=== PATIENT | female | born 1980 | race Caucasian/White ===

== ENCOUNTER → 2017-05-20 08:28 | Outpatient (CLI) | payer BC, SELFPAY ==
--- NOTE | 2017-05-20 08:37 | CA_ITS ---
PROCEDURE: 2-D M-mode and color Doppler study INDICATIONS FOR THE TEST: Chest pain X COPD Heart Murmur Tobacco Smoking Palpitations Fatigue Syncope Edema HypertensionXDiabetes Mellitus Rheumatic Fever SOBXDOE Obesity Hyperlipidemia Family History HD Additional History PATIENT INFORMATION HEIGHT: 64 WEIGHT:130 GENDER: Female B/P:170/100 2-D/M-MODE INTERPRETATION: 2-D MEASUREMENTS OBSERVED VALUES IN CMS Right Ventricular Dimension (RVDd) 2.4 Interventricular Septum (Thickness)(IVsd) .6 Left Ventricular Internal Dimensions(LVIDd) 4.8 Left Ventricular Posterior Wall (Thickness)(LVPWd) .7 Aortic Root 2.5 Aortic Cusp Separation 1.9 Left Atrial Dimensions (LAD) 2.9 2D 1. Left atrium is normal size, left ventricle is normal size, there is no concentric left ventricular hypertrophy, visually estimated ejection fraction 55% with no obvious regional wall motion abnormality. 2. The right atrium and right ventricle are normal size and contractility. 3. The aortic, mitral and tricuspid valve are structurally normal. 4. The pulmonic valve is poorly visualized. 5. There is no significant pericardial effusion noted. DOPPLER INTERROGATION: Doppler interrogation of the aortic, mitral and tricuspid valvular presence of mild mitral and tricuspid regurgitation, tricuspid and jet velocity insufficient for calculation of the right ventricular systolic pressure, diastolic parameters are within normal range. CONCLUSION: 1. Normal left ventricular size, preserved left ventricular systolic function, visually estimated ejection fraction 55% with no obvious regional wall motion abnormality, diastolic parameters are within normal range. 2. Mild mitral and tricuspid regurgitation 3. No significant pericardial effusion noted.
== END ==
PROVIDERS: Family Provider Physician Assistant; PCP Internal Medicine Adolescent Medicine; Visit Provider Nurse Practitioner Family
DX: I10 Essential (primary) hypertension (principal); R07.9 Chest pain, unspecified
CPT/HCPCS: 93306

== ENCOUNTER → 2017-06-30 17:15 | Outpatient (CLI) | payer BC, SELFPAY ==
[2017-06-30 18:28] LABS: Strep Scrn Group A (Rapid) Negative (Negative)
== END ==
PROVIDERS: Visit Provider Nurse Practitioner Family
DX: J02.9 Acute pharyngitis, unspecified (principal)
CPT/HCPCS: 87430

== ENCOUNTER 2017-07-10 15:36 | Emergency (ER) | payer BC, SELFPAY ==
[2017-07-10 15:46] VITALS: BP 142/89; PULSE 78; RESP 20; TEMP 36.8; O2SAT 98; BMI 23.1
--- NOTE | 2017-07-10 15:55 | HMH.EDUTC ---
[facility] [place] Clinical Impression: Sinusitis Qualifiers: Sinusitis location: unspecified location Chronicity: unspecified Qualified Code(s): J32.9 - Chronic sinusitis, unspecified Disposition: Home, Self-Care Condition on Discharge: Good Instructions: Sinusitis, Sinus Headache, DI for Sinusitis Additional Instructions: Start antibiotic. Sinus infections may take 2-3 days to notice much improvement so be sure to use conservative measures as discussed for symptoms Flonase 2 spray in each nostril daily to help with nasal congestion, sinus an ear pressure/inflammation Lots of Fluids Sleep elevated Humidifer/vaporizer Augmentin can cause GI effects. Probiotics may help to prevent these symptoms Prescriptions: Amoxicillin/Potassium Clav [Augmentin 875-125 Tablet] 1 tab PO Q12H #14 tab Fluticasone Propionate [Flonase 50mcg nasal spray 16gm] 2 spr NS DAILY #1 bottle Guaifenesin/Dextromethorphan [Mucinex Dm ER 1,200-60 mg Tab] 1 each PO Q12H #20 tab.er.12h predniSONE [Prednisone 20mg Tab] 20 mg PO BID #10 tab Time of Disposition: 16:11 Medical Decision Making - Medical Records Medical records reviewed: Yes: I reviewed the patient's medical records. - Jamie Inquiry Pt receiving controlled substance: No Jamie was queried for this patient: No Vital Signs: 07/10/17 15:46 Temperature 98.2 F Temperature Source Temporal Artery Scan Pulse Rate [Right Brachial] 78 Respiratory Rate 20 Blood Pressure [Right Arm] 142/89 Blood Pressure Mean [Right Arm] 106 Blood Pressure Source [Right Arm] Automatic Cuff Blood Pressure Position [Right Arm] Sitting 02 Sat by Pulse Oximetry 98 Oxygen Delivery Method Room Air [facility] [place] HPI - General Stated complaint: eyes hurt,head congestion,sinus problems Time Seen by Provider: 07/10/17 16:00 Mode of Arrival: Family Vehicle Source of Information: Patient Limitations: No Limitations Description of Symptoms (Recalled from Triage Doc. by RN): C/O SORE THROAT, BURNING EYES,SINUSPRESSURE AND PAIN X 2 WEEKS HEENT Symptoms (Recalled from RN notes): Yes Resp Symptoms (Recalled from RN notes): Yes Skin Symptoms (Recalled from RN notes): No MS Symptoms (Recalled from RN notes): No Functional Status (Recalled from RN notes): N/A - History of Present Illness Provider Complaint: Patient state that she has been having sinus pain and pressure now for about 2 weeks State that she has taken several over the counter medications but nothing has worked State that she has had a fever, pain and pressure behind her eyes, feels like her teeth is sore. State that she has blown her nose several times and seen blood tinged mucous State that now this evening she has a sinus headache and decided to come in and get checked out - Related Data Home Medications Medication Instructions Recorded Confirmed Cetirizine HCl [Zyrtec] 10 mg PO DAILY 07/10/17 07/10/17 Escitalopram Oxalate [Lexapro] 20 mg PO DAILY 07/10/17 07/10/17 Meloxicam 7.5 mg PO DAILY 07/10/17 07/10/17 Propranolol HCl 10 mg PO BID 07/10/17 07/10/17 Previous Rx's Medication Instructions Recorded Amoxicillin/Potassium Clav 1 tab PO Q12H #14 tab 07/10/17 [Augmentin 875-125 Tablet] Fluticasone Propionate [Flonase 2 spr NS DAILY #1 bottle 07/10/17 50mcg nasal spray 16gm] Guaifenesin/Dextromethorphan 1 each PO Q12H #20 tab.er.12h 07/10/17 [Mucinex Dm ER 1,200-60 mg Tab] predniSONE [Prednisone 20mg 20 mg PO BID #10 tab 07/10/17 Tab] Allergies Allergy/AdvReac Type Severity Reaction Status Date / Time No Known Allergies Allergy Verified 07/10/17 15:50 - Worker's Comp Is this a Worker's Comp case?: No [facility] History I have reviewed the patient's past medical history: Yes - Social History Alcohol Intake: never - Psychiatric History Expresses thoughts of harming self/others: None Suicide Plan Description: No Plan ROS Obtained: Yes All systems reviewed & no additional complaints - Constitutional Constitutional:
--- NOTE | 2017-07-10 16:06 | ED_ITS ---
[facility] – [place] Disposition Clinical Impression: Sinusitis Qualifiers: Sinusitis location: unspecified location Chronicity: unspecified Qualified Code (s): J32.9 - Chronic sinusitis, unspecified Disposition: Home, Self-Care Condition on Discharge: Good Instructions: Sinusitis, Sinus Headache, DI for Sinusitis Additional Instructions: Start antibiotic. Sinus infections may take 2-3 days to notice much improvement so be sure to use conservative measures as discussed for symptoms Flonase 2 spray in each nostril daily to help with nasal congestion, sinus an ear pressure/inflammation Lots of Fluids Sleep elevated Humidifer/vaporizer Augmentin can cause GI effects. Probiotics may help to prevent these symptoms Prescriptions: Amoxicillin/Potassium Clav [Augmentin 875-125 Tablet] 1 tab PO Q12H #14 tab Fluticasone Propionate [Flonase 50mcg nasal spray 16gm] 2 spr NS DAILY #1 bottle Guaifenesin/Dextromethorphan [Mucinex Dm ER 1,200-60 mg Tab] 1 each PO Q12H #20 tab.er.12h predniSONE [Prednisone 20mg Tab] 20 mg PO BID #10 tab Time of Disposition: 16:11 Medical Decision Making - Medical Records Medical records reviewed: Yes: I reviewed the patient's medical records. - Jamie Inquiry Pt receiving controlled substance: No Jamie was queried for this patient: No Vital Signs: 07/10/17 15:46 Temperature 98.2 F Temperature Source Temporal Artery Scan Pulse Rate [Right Brachial] 78 Respiratory Rate 20 Blood Pressure [Right Arm] 142/89 Blood Pressure Mean [Right Arm] 106 Blood Pressure Source [Right Arm] Automatic Cuff Blood Pressure Position [Right Arm] Sitting 02 Sat by Pulse Oximetry 98 Oxygen Delivery Method Room Air [facility] [place] HPI - General Stated complaint: eyes hurt,head congestion,sinus problems Time Seen by Provider: 07/10/17 16:00 Mode of Arrival: Family Vehicle Source of Information: Patient Limitations: No Limitations Description of Symptoms (Recalled from Triage Doc. by RN): C/O SORE THROAT, BURNING EYES,SINUSPRESSURE AND PAIN X 2 WEEKS HEENT Symptoms (Recalled from RN notes): Yes Resp Symptoms (Recalled from RN notes): Yes Skin Symptoms (Recalled from RN notes): No MS Symptoms (Recalled from RN notes): No Functional Status (Recalled from RN notes): N/A - History of Present Illness Provider Complaint: Patient state that she has been having sinus pain and pressure now for about 2 weeks State that she has taken several over the counter medications but nothing has worked State that she has had a fever, pain and pressure behind her eyes, feels like her teeth is sore. State that she has blown her nose several times and seen blood tinged mucous State that now this evening she has a sinus headache and decided to come in and get checked out - Related Data Home Medications Medication Instructions Recorded Confirmed Cetirizine HCl [Zyrtec] 10 mg PO DAILY 07/10/17 07/10/17 Escitalopram Oxalate [Lexapro] 20 mg PO DAILY 07/10/17 07/10/17 Meloxicam 7.5 mg PO DAILY 07/10/17 07/10/17 Propranolol HCl 10 mg PO BID 07/10/17 07/10/17 Previous Rx's Medication Instructions Recorded Amoxicillin/Potassium Clav 1 tab PO Q12H #14 tab 07/10/17 [Augmentin 875-125 Tablet] Fluticasone Propionate [Flonase 2 spr NS DAILY #1 bottle 07/10/17 50mcg nasal spray 16gm] Guaifenesin/Dextromethorphan 1 each PO Q12H #20 tab.er.12h 07/10/17 [Mucinex Dm ER 1,200-60 mg Tab]
[2017-07-10 16:13] VITALS: BP 138/78; PULSE 72; RESP 20; TEMP 36.8; O2SAT 98
== END 2017-07-10 16:25 | disposition home or self-care (01) ==
LOC: UTC 16:17
PROVIDERS: Emergency Provider Nurse Practitioner; Family Provider Physician Assistant; PCP Internal Medicine Adolescent Medicine
DX: J32.9 Chronic sinusitis, unspecified (principal); Z79.899 Other long term (current) drug therapy
CPT/HCPCS: 99201

== ENCOUNTER → 2018-07-29 12:00 | Outpatient (CLI) | payer BC, SELFPAY ==
[2018-07-29 12:23] LABS: Basophils % 0.6 % (0.1-2.0); Eosinophils # 0.1 K/mm3 (0.0-0.4); Hematocrit 34.9 % (37.0-47.0); Hemoglobin 12.2 g/dL (12.2-16.2); Lymphocytes # 1.8 K/mm3 (0.7-4.5); Mean Corpuscular Hemoglobin 31.4 pg (27.0-31.2); Mean Corpuscular Volume 89.6 fl (81-99); Mean Platelet Volume 7.8 fl (7.4-10.4); Monocytes # 0.2 K/mm3 (0.1-1.0); Monocytes % 5.4 % (1.7-9.3); Neutrophils # 2.3 K/mm3 (1.8-7.8); Neutrophils % 50.1 % (37.0-80.0); Platelet Count 255 K/mm3 (142-424); Red Cell Distribution Width 14.2 % (11.5-17.5); White Blood Count 4.5 K/mm3 (4.8-10.8)
[2018-07-29 13:00] LABS: C-Reactive Protein < 0.2 mg/L (0.0-0.9)
[2018-07-29 13:33] LABS: Erythrocyte Sedimentation Rate 3 mm/hr (0-20)
== END ==
PROVIDERS: Visit Provider Nurse Practitioner Family
DX: M25.50 Pain in unspecified joint (principal)
CPT/HCPCS: 36415; 85025; 85651; 86140

== ENCOUNTER → 2020-03-25 12:35 | Outpatient (CLI) | payer BC, SELFPAY ==
[2020-03-25 13:06] LABS: Basophils # 0.1 K/mm3 (0-0.2); Eosinophils # 0.1 K/mm3 (0.0-0.4); Eosinophils % 1.8 % (0.1-12.0); Hematocrit 39.3 % (37.0-47.0); Hemoglobin 13.1 g/dL (12.2-16.2); Lymphocytes # 1.5 K/mm3 (0.7-4.5); Mean Corpuscular HGB Conc 33.3 g/dL (31.8-35.4); Mean Corpuscular Hemoglobin 30.6 pg (27.0-31.2); Mean Corpuscular Volume 91.9 fl (81-99); Monocytes # 0.4 K/mm3 (0.1-1.0); Monocytes % 8.4 % (1.7-9.3); Neutrophils # 3.1 K/mm3 (1.8-7.8); Neutrophils % 59.8 % (37.0-80.0); Platelet Count 242 K/mm3 (142-424); Red Blood Count 4.28 M/mm3 (4.20-5.40); Red Cell Distribution Width 15.6 % (11.5-17.5); White Blood Count 5.2 K/mm3 (4.8-10.8)
[2020-03-25 13:47] LABS: Adenovirus F 40/41, stool Not Detected (NotDetected); Astrovirus Not Detected (NotDetected); Campylobacter Not Detected (NotDetected); Clostridium Difficile A/B, PCR Not Detected (NotDetected); Cryptosporidium Not Detected (NotDetected); Cyclospora Cayetanesis Not Detected (NotDetected); Entamoeba histolytica Not Detected (NotDetected); Enteroaggregative E coli Not Detected (NotDetected); Enteropathogenic E coli Not Detected (NotDetected); Enterotoxigenic E coli Not Detected (NotDetected); Giardia lamblia Not Detected (NotDetected); Norovirus Not Detected (NotDetected); Plesimonas Shigalloides, PCR Not Detected (NotDetected); Rotavirus A Not Detected (NotDetected); Salmonella, PCR Not Detected (NotDetected); Sapovirus Not Detected (NotDetected); Shiga-like toxin E coli Not Detected (NotDetected); Shigella Enterovasive E coli Not Detected (NotDetected); Vibrio Cholerae Not Detected (NotDetected); Vibrio, PCR Not Detected (NotDetected); Yersinia Entercolitica, PCR Not Detected (NotDetected)
[2020-03-25 14:09] LABS: Erythrocyte Sedimentation Rate 18 mm/hr (0-20)
[2020-03-25 14:44] LABS: Chloride 105 mmol/L (98-107); Potassium 3.6 mmoL/L (3.5-5.1); Sodium 134 mmol/L (136-145)
[2020-03-25 14:47] LABS: Alanine Aminotransferase 30 U/L (12-78); Albumin Level 3.8 g/dl (3.5-5.0); Albumin/Globulin Ratio 1.4 (1.1-1.8); Alkaline Phosphatase 57 U/L (38-126); Anion Gap 9.6 mEq/L (5-15); Aspartate Amino Transferase 40 U/L (14-36); Bilirubin,Total 0.8 mg/dl (0.2-1.3); Blood Urea Nitrogen 9 mg/dl (7-17); Calcium 9.4 mg/dl (8.4-10.2); Carbon Dioxide 23 mmol/L (22.0-30.0); Estimated Glomerular Filt Rate 79 ml/min (>60); GFR (African American) 95 ML/MIN (>60); Globulin 2.7 g/dL (1.3-3.2); Glucose 81 mg/dl (74-100); Total Protein,Serum 6.5 g/dl (6.3-8.2)
== END ==
PROVIDERS: Visit Provider Nurse Practitioner Family
DX: R19.7 Diarrhea, unspecified (principal)
CPT/HCPCS: 36415; 80053; 85025; 85651; 87507

== ENCOUNTER → 2020-03-27 11:40 | Outpatient (CLI) | payer BC, SELFPAY ==
[2020-03-27 12:03] VITALS: BP 143/97; PULSE 82; RESP 20; TEMP 36.4; O2SAT 100
[2020-03-27 13:57] LABS: Chloride 109 mmol/L (98-107); Potassium 3.2 mmoL/L (3.5-5.1); Sodium 135 mmol/L (136-145)
[2020-03-27 14:00] LABS: Alanine Aminotransferase 44 U/L (12-78); Albumin Level 3.6 g/dl (3.5-5.0); Albumin/Globulin Ratio 1.2 (1.1-1.8); Alkaline Phosphatase 67 U/L (38-126); Anion Gap 7.2 mEq/L (5-15); Aspartate Amino Transferase 52 U/L (14-36); Bilirubin,Total 0.7 mg/dl (0.2-1.3); Blood Urea Nitrogen 8 mg/dl (7-17); Calcium 8.6 mg/dl (8.4-10.2); Carbon Dioxide 22 mmol/L (22.0-30.0); Estimated Glomerular Filt Rate 79 ml/min (>60); GFR (African American) 95 ML/MIN (>60); Globulin 2.9 g/dL (1.3-3.2); Glucose 88 mg/dl (74-100); Total Protein,Serum 6.5 g/dl (6.3-8.2)
[2020-03-27 14:12] LABS: Basophils % 1.2 % (0.1-2.0); Eosinophils # 0.1 K/mm3 (0.0-0.4); Eosinophils % 2.3 % (0.1-12.0); Hematocrit 38.4 % (37.0-47.0); Hemoglobin 12.7 g/dL (12.2-16.2); Lymphocytes # 1.1 K/mm3 (0.7-4.5); Mean Corpuscular Hemoglobin 30.3 pg (27.0-31.2); Mean Corpuscular Volume 91.8 fl (81-99); Mean Platelet Volume 9.6 fl (7.4-10.4); Monocytes # 0.3 K/mm3 (0.1-1.0); Monocytes % 10.4 % (1.7-9.3); Neutrophils # 1.7 K/mm3 (1.8-7.8); Neutrophils % 52.1 % (37.0-80.0); Platelet Count 222 K/mm3 (142-424); Red Blood Count 4.18 M/mm3 (4.20-5.40); Red Cell Distribution Width 15.2 % (11.5-17.5); White Blood Count 3.3 K/mm3 (4.8-10.8)
--- NOTE | 2020-03-27 15:13 | PC.NURSE ---
Pt was an outpatient and c/o of nausea/ tingling in legs-which is worse with flare ups pt stated from fibro and arthritis. Ordered zofran and LR given as ordered and pt stated she felt some better. Then approx 20 mins later pt c/o of nausea again. This nurse, spoke with greenhouse manager and she received order for phenegran but pt had left already after speaking with Odette via text. PONCHO Pino told her she would update her with labs and felt no other tests were needed currently. Pt was very eager to go home with 5 girl children and left with . This nurse explained if s/s were worse or not improving to come back to [facility] or ED.
== END ==
PROVIDERS: PCP Internal Medicine Adolescent Medicine; Visit Provider Nurse Practitioner Family
DX: R19.7 Diarrhea, unspecified (principal); E86.0 Dehydration
CPT/HCPCS: 80053; 83735; 85025; 96360; J2405

== ENCOUNTER → 2020-04-02 09:35 | Outpatient (CLI) | payer BC, SELFPAY ==
--- NOTE | 2020-04-02 09:42 | CT_ITS ---
PROCEDURE: CT ABDOMEN PELVIS W CON CLINICAL INDICATION: DIARRHEA,ABD PAIN COMPARISON: No e CT scan abdomen and pelvis with IV contrast 01/16/2019 No exams were available for comparison TECHNIQUE: IV Contrast: 75ML OPTIRAY 350 Oral Contrast none given Axial images obtained with sagittal and coronal reformats. All CT scans at the facility use one or more dose reduction, viz: automated exposure control, ma/kV adjustment per patient size (including targeted exams where dose is matched to indication, i.e. head), or iterative reconstruction technique. FINDINGS: Lower thorax: The lower lung palencia are clear and there is no pleural fluid. ABDOMEN: Liver: No masses or biliary dilatation. Gallbladder: Nondistended. No radio opaque stones. Pancreas: No masses or peripancreatic fluid collections. Spleen: unremarkable Adrenals: unremarkable Kidneys/ureters: The kidneys are normal in size and show symmetrical function. There is a tiny nonobstructing calculus upper pole left kidney. There is no obstructive uropathy of either kidney. ABDOMEN & PELVIS: Stomach bowel: The stomach and duodenal sweep appear normal. The possible small bowel appears normal, there are mildly dilated fluid-filled loops of distal small bowel.. There is minimal formed stool in the cecum, there is mostly liquid stool throughout the remainder of the colon consistent with the history of diarrhea. Peritoneum: No abnormal fluid collections. No obvious inflammatory changes. No free air. Lymph nodes: No enlarged lymph nodes apparent. Vasculature: No evidence of abdominal aortic aneurysm. No retroperitoneal hemorrhage evident. Bones: No acute fracture PELVIS: Reproductive: The uterus is normal in size and in the midline and somewhat anteverted. The adnexa are unremarkable. Bladder: The urinary bladder is partially decompressed, there is no free fluid in the pelvis. Appendix: The appendix is not definitely visualized but there are no pericecal inflammatory changes. IMPRESSION: Fluid-filled mildly dilated loops of distal small bowel and liquid stool in the colon findings most suggestive of mild enteritis, I see no evidence of obstruction Dictated by: Dr. Randy Louis MD 04/02/2020 10:30 Dr. Randy Louis MD in [facility] 04/02/2020 10:30
== END ==
PROVIDERS: PCP Internal Medicine Adolescent Medicine; Visit Provider Nurse Practitioner Family
DX: R10.9 Unspecified abdominal pain (principal); R19.7 Diarrhea, unspecified
CPT/HCPCS: 74177; Q9967

== ENCOUNTER → 2020-04-02 10:08 | Outpatient (CLI) | payer BC, SELFPAY ==
[2020-04-02 10:44] LABS: Basophils % 0.6 % (0.1-2.0); Eosinophils # 0.1 K/mm3 (0.0-0.4); Eosinophils % 2.5 % (0.1-12.0); Hematocrit 36.4 % (37.0-47.0); Hemoglobin 12.1 g/dL (12.2-16.2); Lymphocytes # 0.9 K/mm3 (0.7-4.5); Lymphocytes % 18.9 % (10-50); Mean Corpuscular HGB Conc 33.2 g/dL (31.8-35.4); Mean Corpuscular Hemoglobin 30.5 pg (27.0-31.2); Mean Corpuscular Volume 91.7 fl (81-99); Mean Platelet Volume 8.8 fl (7.4-10.4); Monocytes # 0.4 K/mm3 (0.1-1.0); Monocytes % 7.5 % (1.7-9.3); Neutrophils # 3.5 K/mm3 (1.8-7.8); Neutrophils % 70.5 % (37.0-80.0); Platelet Count 199 K/mm3 (142-424); Red Blood Count 3.97 M/mm3 (4.20-5.40); Red Cell Distribution Width 15.6 % (11.5-17.5); White Blood Count 4.9 K/mm3 (4.8-10.8)
[2020-04-02 11:48] LABS: Chloride 106 mmol/L (98-107); Potassium 3.4 mmoL/L (3.5-5.1); Sodium 134 mmol/L (136-145)
[2020-04-02 11:51] LABS: Alanine Aminotransferase 39 U/L (12-78); Albumin Level 3.3 g/dl (3.5-5.0); Albumin/Globulin Ratio 1.4 (1.1-1.8); Alkaline Phosphatase 75 U/L (38-126); Amylase 66 U/L (30-110); Anion Gap 10.4 mEq/L (5-15); Aspartate Amino Transferase 38 U/L (14-36); Bilirubin,Total 0.8 mg/dl (0.2-1.3); Blood Urea Nitrogen 10 mg/dl (7-17); Calcium 8.8 mg/dl (8.4-10.2); Carbon Dioxide 21 mmol/L (22.0-30.0); Estimated Glomerular Filt Rate 79 ml/min (>60); GFR (African American) 95 ML/MIN (>60); Globulin 2.4 g/dL (1.3-3.2); Glucose 76 mg/dl (74-100); Lipase 57 U/L (23-300); Total Protein,Serum 5.7 g/dl (6.3-8.2)
== END ==
PROVIDERS: Visit Provider Nurse Practitioner Family
DX: R11.10 Vomiting, unspecified (principal); R19.7 Diarrhea, unspecified
CPT/HCPCS: 36415; 80053; 82150; 83690; 85025

== ENCOUNTER 2020-04-10 14:21 | Emergency (ER) | payer BC, SELFPAY ==
[2020-04-10 14:22] VITALS: BP 168/100; PULSE 101; RESP 22; TEMP 36.6; O2SAT 100; BMI 22.3
--- NOTE | 2020-04-10 14:35 | CT_ITS ---
PROCEDURE: CT ABDOMEN PELVIS W CON CLINICAL INDICATION: nausea Nausea with mid abdominal pain COMPARISON: CT CT ABDOMEN PELVIS W CON from 04/02/2020 TECHNIQUE: IV Contrast: 75ML Isovue 370 Oral Contrast None Axial images obtained with sagittal and coronal reformats. All CT scans at the facility use one or more dose reduction, viz: automated exposure control, ma/kV adjustment per patient size (including targeted exams where dose is matched to indication, i.e. head), or iterative reconstruction technique. FINDINGS: LOWER THORAX: No acute finding ABDOMEN & PELVIS: The liver, spleen, adrenal glands, pancreas and kidneys have an unremarkable appearance. No evidence of appendicitis. There is mild diffuse thickening of the colon with fluid within the colon consistent with colitis. There is a pessary device present. Previously noted fluid-filled loops of small bowel have improved. No evidence of small-bowel obstruction. Compared to the previous study there is increased thickening the large bowel in the region of the hepatic flexure and transverse colon. IMPRESSION: Findings compatible with colitis. Compared to the previous study there has been some increase in large bowel wall thickening in the hepatic flexure and transverse colon with interval improvement in fluid-filled small bowel loops. Dictated by: Jose Soliz MD 04/10/2020 15:36 Jose Soliz MD in [facility] 04/10/2020 15:36
[2020-04-10 14:44] LABS: Adenovirus F 40/41, stool Not Detected (NotDetected); Astrovirus Not Detected (NotDetected); Campylobacter Not Detected (NotDetected); Clostridium Difficile A/B, PCR Not Detected (NotDetected); Cryptosporidium Not Detected (NotDetected); Cyclospora Cayetanesis Not Detected (NotDetected); Entamoeba histolytica Not Detected (NotDetected); Enteroaggregative E coli Not Detected (NotDetected); Enteropathogenic E coli Not Detected (NotDetected); Enterotoxigenic E coli Not Detected (NotDetected); Giardia lamblia Not Detected (NotDetected); Norovirus Not Detected (NotDetected); Plesimonas Shigalloides, PCR Not Detected (NotDetected); Rotavirus A Not Detected (NotDetected); Salmonella, PCR Not Detected (NotDetected); Sapovirus Not Detected (NotDetected); Shiga-like toxin E coli Not Detected (NotDetected); Shigella Enterovasive E coli Not Detected (NotDetected); Vibrio Cholerae Not Detected (NotDetected); Vibrio, PCR Not Detected (NotDetected); Yersinia Entercolitica, PCR Not Detected (NotDetected)
[2020-04-10 14:47] LABS: Basophils # 0.1 K/mm3 (0-0.2); Basophils % 0.9 % (0.1-2.0); Eosinophils # 0.3 K/mm3 (0.0-0.4); Eosinophils % 2.9 % (0.1-12.0); Hematocrit 42.3 % (37.0-47.0); Hemoglobin 14.1 g/dL (12.2-16.2); Lymphocytes % 22.7 % (10-50); Mean Corpuscular HGB Conc 33.3 g/dL (31.8-35.4); Mean Corpuscular Hemoglobin 30.2 pg (27.0-31.2); Mean Corpuscular Volume 90.8 fl (81-99); Mean Platelet Volume 8.5 fl (7.4-10.4); Monocytes # 0.5 K/mm3 (0.1-1.0); Monocytes % 5.6 % (1.7-9.3); Platelet Count 379 K/mm3 (142-424); Red Blood Count 4.66 M/mm3 (4.20-5.40); Red Cell Distribution Width 15.5 % (11.5-17.5); White Blood Count 8.8 K/mm3 (4.8-10.8)
[2020-04-10 15:01] LABS: Chloride 107 mmol/L (98-107); Sodium 135 mmol/L (136-145)
[2020-04-10 15:03] LABS: Alanine Aminotransferase 32 U/L (12-78); Amylase 156 U/L (30-110); Blood Urea Nitrogen 14 mg/dl (7-17); Creatinine Clearance Estimated 76 mL/min (50-200); Estimated Glomerular Filt Rate 69 ml/min (>60); GFR (African American) 83 ML/MIN (>60)
[2020-04-10 15:04] LABS: Albumin Level 4.2 g/dl (3.5-5.0); Albumin/Globulin Ratio 1.4 (1.1-1.8); Alkaline Phosphatase 77 U/L (38-126); Anion Gap 9.6 mEq/L (5-15); Aspartate Amino Transferase 35 U/L (14-36); Bilirubin,Total 0.9 mg/dl (0.2-1.3); Calcium 9.5 mg/dl (8.4-10.2); Carbon Dioxide 21 mmol/L (22.0-30.0); Glucose 110 mg/dl (74-100); Lipase 467 U/L (23-300); Total Protein,Serum 7.2 g/dl (6.3-8.2)
[2020-04-10 15:07] LABS: Potassium 2.6 mmoL/L (3.5-5.1)
--- NOTE | 2020-04-10 15:21 | ECG_ITS ---
APPROVED REPORT Exam: Resting ECG HR:89 bpm ECG Measurements Heart Rate 89 AXES [place] 162 P 67 QRSd 94 QRS 39 QT 384 T 62 QTc 467 Conclusion Normal sinus rhythm Incomplete right bundle branch block Borderline ECG Electronically signed by : César Fowler, 04/11/2020 15:21:10
[2020-04-10 15:30] VITALS: BP 124/90; PULSE 84; RESP 18; O2SAT 100
[2020-04-10 16:09] VITALS: BP 136/86; PULSE 100; RESP 16; O2SAT 100
--- NOTE | 2020-04-10 16:14 | HMH.EDGENADL ---
ED Disposition Clinical Impression: Enterocolitis, Hypokalemia, Pre-syncope Diarrhea Qualifiers: Diarrhea type: unspecified type Qualified Code(s): R19.7 - Diarrhea, unspecified Disposition: Home, Self-Care Condition on Discharge: Fair Instructions: DI for Hypokalemia, DI for Diarrhea and Traveler's Diarrhea -- Adult Additional Instructions: Take potassium as prescribed. Stop bisoprolol and hydrochlorothiazide combination blood pressure medication until further instructed by your primary care provider. Continue Phenergan for nausea. May start Cipro as prescribed by primary care provider. Follow-up with your primary care provider in the office tomorrow. Prescriptions: Potassium Chloride [K-Tab ER 20 mEq] 20 meq PO DAILY #7 tab Transmission Status: Pending to [facility] Referrals: César Fowler MD [Primary Care Provider] - - Critical Care Critical Care Time: No Attestation: On 04/10/20, the high probability of a clinically significant, sudden or life threatening deterioration of the following system(s) required my full and direct attention, intervention and personal management. The time I documented below is in addition to time spent performing reported procedures but includes the following listed in this critical care notation. Medical Decision Making - Medical Records Medical records reviewed: Yes: I reviewed the patient's medical records. MR Comment: Reviewed prior lab results, CT scan results, and diarrhea panel results during this illness which were all unremarkable except for findings of enterocolitis on CT scan - Jamie Inquiry Pt receiving controlled substance: No Vital Signs: 04/10/20 14:22 04/10/20 15:30 04/10/20 16:09 Temperature 98 F Temperature Source Oral Pulse Rate [Right] 101 H 84 100 H Respiratory Rate 22 18 16 Blood Pressure [Right Arm] 168/100 H 124/90 136/86 Blood Pressure Mean [Right Arm] 122 101 102 Blood Pressure Source [Right Arm] Automatic Cuff Automatic Cuff Automatic Cuff Blood Pressure Position [Right Arm] Sitting Sitting Sitting 02 Sat by Pulse Oximetry 100 100 100 Oxygen Delivery Method Room Air 04/10/20 17:03 04/10/20 17:59 Temperature Temperature Source Pulse Rate [Right] 99 H 108 H Respiratory Rate 16 20 Blood Pressure [Right Arm] 111/74 116/77 Blood Pressure Mean [Right Arm] 86 90 Blood Pressure Source [Right Arm] Automatic Cuff Automatic Cuff Blood Pressure Position [Right Arm] Sitting Sitting 02 Sat by Pulse Oximetry 100 100 Oxygen Delivery Method Room Air - Lab Data Lab Results 04/10/20 14:35: WBC 8.8, RBC 4.66, Hgb 14.1, Hct 42.3, MCV 90.8, MCH 30.2, MCHC 33.3, RDW 15.5, Plt Count 379, MPV 8.5, Neut % (Auto) 68.0, Lymph % (Auto) 22.7, [place] % (Auto) 5.6, Eos % (Auto) 2.9, Baso % (Auto) 0.9, Neut # (Auto) 6.0, Lymph # (Auto) 2.0, [place] # (Auto) 0.5, Eos # (Auto) 0.3, Baso # (Auto) 0.1 04/10/20 14:35: Sodium 135 L, Potassium 2.6 L*, Chloride 107, Carbon Dioxide 21 L, Anion Gap 9.6, BUN 14, Creatinine 0.90, Estimated Creat Clear 76, Estimated GFR 69, Est GFR ( Amer) 83, Glucose 110 H, Calcium 9.5, Total Bilirubin 0.9, AST 35, ALT 32, Alkaline Phosphatase 77, Total Protein 7.2 D, Albumin 4.2, Globulin 3.0, Albumin/Globulin Ratio 1.4, Amylase 156 H, Lipase 467 H 04/10/20 14:35: ESR 18 04/10/20 14:35: C-Reactive Protein 10.0 H 04/10/20 16:54: Urine Color Yellow, Urine Appearance Clear, Urine pH 5.5, Ur Specific [place] <= 1.005, Urine Protein Negative, Urine Glucose (UA) Negative, Urine Ketones Negative, Urine Blood Trace-l, Urine Nitrate Negative, Urine Bilirubin Negative, Urine Urobilinogen 0.2, Ur Leukocyte Esterase Negative, Urine WBC Occasional, Ur Squamous Epith Cells 3-5 Result diagrams: 04/10/20 14:35 04/10/20 14:35 Orders (Tests/Meds): ED MEDICATIONS Generic Name Dose Route Start Last Admin Trade Name Freq PRN Reason Stop Dose Admin Potassium Chloride/Water 100 mls @ 50 mls/hr 04/10/20 16:52 04/10/20 17:08
[2020-04-10 16:59] LABS: Microscopic, Urine URINE MICROSCOPIC (MICROSCOPIC)
[2020-04-10 17:01] LABS: Appearance,Urine CLEAR (Clear); Bilirubin,Urine Negative (Negative); Blood, Urine TRACE-L (Negative); Color,Urine YELLOW (Yellow); Glucose,Urine (UA) Negative (Negative); Ketones,Urine Negative (Negative); Leukocyte Esterase,Urine Negative (Negative); Nitrate,Urine Negative (Negative); PH,Urine 5.5 (5.0-8.5); Protein,Urine Negative (Negative); Specific Gravity, Urine <= 1.005 (1.005-1.030); Urobilinogen,Urine 0.2 EU/dl (0.2)
--- NOTE | 2020-04-10 17:02 | PC.NURSE ---
pt given kaity omari will see how it does on her stomach.
[2020-04-10 17:03] VITALS: BP 111/74; PULSE 99; RESP 16; O2SAT 100
[2020-04-10 17:11] LABS: WBC,Urine Occasional #/hpf (0-3)
[2020-04-10 17:16] LABS: Erythrocyte Sedimentation Rate 18 mm/hr (0-20)
--- NOTE | 2020-04-10 17:30 | PC.NURSE ---
potassium started at this time. PT resting
[2020-04-10 17:59] VITALS: BP 116/77; PULSE 108; RESP 20; O2SAT 100
[2020-04-10 19:32] VITALS: BP 118/78; PULSE 105; RESP 15; TEMP 36.6; O2SAT 98
== END 2020-04-10 19:41 | disposition home or self-care (01) ==
PROVIDERS: Emergency Provider Emergency Medicine; PCP Internal Medicine Adolescent Medicine
DX: K52.9 Noninfective gastroenteritis and colitis, unspecified (principal); E87.6 Hypokalemia; Z79.899 Other long term (current) drug therapy
CPT/HCPCS: 74177; 80053; 81001; 82150; 83690; 85025; 85651; 86140; 87507; 93005; 96365; 96367; 96375; 96376; 99284; J2405; Q9967

== ENCOUNTER → 2020-05-07 14:54 | Outpatient (CLI) | payer BC, SELFPAY ==
[2020-05-09 17:55] LABS: Immunoglobulin A, Qn 50 mg/dL (87-352)
[2020-05-10 04:20] LABS: Deamidated Gliadin Abs, IgA 2 units (0-19); Deamidated Gliadin Abs, IgG 1 units (0-19); Tissue Transglutaminase IgA Ab <2 U/mL (0-3)
== END ==
DX: Z82.49 Family history of ischemic heart disease and other diseases of the circulatory system (principal); Z82.61 Family history of arthritis
CPT/HCPCS: 36415; 82784; 83516

== ENCOUNTER → 2020-06-02 19:54 | Outpatient (CLI) | payer BC, SELFPAY | PROVIDERS: PCP Internal Medicine Adolescent Medicine; Visit Provider Nurse Practitioner Family | DX: Z11.52 Encounter for screening for COVID-19 (principal) | CPT/HCPCS: U0003 ==

== ENCOUNTER → 2021-01-16 12:50 | Outpatient (CLI) | payer BC, SELFPAY ==
--- NOTE | 2021-01-16 12:52 | CT_ITS ---
PROCEDURE: CT CHEST W CON CLINCAL INDICATION: SUPRACLAVICULAR FOSSA FULLNESS COMPARISON: No exams were available for comparison TECHNIQUE: IV Contrast: 75ml Isovue 370 Axial images obtained with sagittal and coronal reformats. All CT scans at the facility use one or more dose reduction, viz: automated exposure control, ma/kV adjustment per patient size (including targeted exams where dose is matched to indication, i.e. head), or iterative reconstruction technique. FINDINGS: HEART AND MEDIASTINAL STRUCTURES: Unremarkable LUNGS AND PLEURAL SPACES: Minimal biapical scarring. Lungs are otherwise clear. No effusions or infiltrates or suspicious nodules. BONY STRUCTURES: No acute bony abnormalities apparent. UPPER ABDOMEN: Fatty liver ADDITIONAL FINDINGS: A BB is placed in the left supraclavicular region and area palpable concern. No discrete mass is evident at this region. There is a small lymph node deep to the placed BB in the supraclavicular area just anterior to the trapezius muscle. This measures approximately 9 x 5 mm. There is also mild asymmetry in the subcutaneous fat at this region which could contribute to the palpable area of concern. A small focal calcification or metallic density at approximately 2 mm is noted in the left breast just superior and slightly lateral to the nipple. Small axillary nodes are present bilaterally. Has the patient had a recent Covid19 vaccination on the left which could account for small palpable lymph nodes.? IMPRESSION: 1. No acute finding. 2. 9 x 5 mm lymph node is present in the supraclavicular region posteriorly on the left deep to the placed BB which could represent the palpable area of concern. There is also mild asymmetry in the subcutaneous fat in this area. No enlarged lymph nodes. Dictated by: Jose Soliz MD 01/17/2021 09:19 Jose Soliz MD in [facility] 01/17/2021 09:19
== END ==
PROVIDERS: PCP Internal Medicine Adolescent Medicine; Visit Provider Nurse Practitioner Family
DX: R22.2 Localized swelling, mass and lump, trunk (principal)
CPT/HCPCS: 71260; Q9967

== ENCOUNTER → 2021-02-05 11:25 | Outpatient (CLI) | payer BC, SELFPAY ==
--- NOTE | 2021-02-05 11:29 | XR_ITS ---
PROCEDURE: XR CERVICAL SPINE 5V CLINICAL INDICATION: NECK PAIN,LT JOINT SHOULDER PAIN COMPARISON: CR CS5 CERVICAL SPINE 4 OR 5 VIEWS from 12/04/2015 FINDINGS: There is slight reversal of the cervical lordosis which may be due to patient positioning or muscle spasm. Mild degenerative disc disease is present at C5-C6. Foramina are widely patent. No fracture or dislocation. No lytic or blastic change. No evidence of cervical rib. Other findings:None. IMPRESSION: Reversal of cervical lordosis with degenerative disc disease at C5-C6. Dictated by: Jose Soliz MD 02/05/2021 12:00 Jose Soliz MD in [facility] 02/05/2021 12:00
--- NOTE | 2021-02-05 11:29 | XR_ITS ---
PROCEDURE: XR SHOULDER LT MIN 2V CLINICAL INDICATION: LT SHOULDER JOINT PAIN COMPARISON: No exams were available for comparison FINDINGS: No fracture or dislocation. No lytic or blastic change. There is normal mineralization. The joint spaces are well-preserved. No significant degenerative/arthritic changes. No erosive changes evident. Other findings:None. IMPRESSION: No acute findings. Dictated by: Jose Soliz MD 02/05/2021 12:01 Jose Soliz MD in [facility] 02/05/2021 12:01
== END ==
PROVIDERS: PCP Nurse Practitioner Family; Visit Provider Nurse Practitioner Family
DX: M54.2 Cervicalgia (principal); M25.512 Pain in left shoulder
CPT/HCPCS: 72050; 73030

== ENCOUNTER 2022-02-17 23:40 | Emergency (ER) | payer BC, SELFPAY ==
[2022-02-17 23:41] VITALS: BP 136/70; PULSE 86; RESP 18; TEMP 36.7; O2SAT 98; BMI 23.1
--- NOTE | 2022-02-18 | CT_ITS ---
PROCEDURE INFORMATION: Exam: CT Abdomen And Pelvis With Contrast Exam date and time: 02/18/2022 1:32 AM Age: 42 years old Clinical indication: Abdominal pain; Localized; Left lower quadrant (llq); Prior surgery; Patient HX: HX of ovarian cysts; Additional info: Llq pain TECHNIQUE: Imaging protocol: Computed tomography of the abdomen and pelvis with contrast. Radiation optimization: All CT scans at this facility use at least one of these dose optimization techniques: automated exposure control; mA and/or kV adjustment per patient size (includes targeted exams where dose is matched to clinical indication); or iterative reconstruction. Contrast material: ISOVUE; Contrast volume: 75 ml; Contrast route: IV; COMPARISON: CT ABDOMEN PELVIS W CON 04/10/2020 3:02 PM FINDINGS: Liver: Liver is diffusely hypoattenuating but without focal lesion. Gallbladder and bile ducts: Normal. No calcified stones. No ductal dilation. Pancreas: Normal. No ductal dilation. Spleen: Normal. No splenomegaly. Adrenal glands: Normal. No mass. Kidneys and ureters: Punctate nonobstructing calyceal calcifications within the kidneys. Stomach and bowel: Unremarkable. No obstruction. No mucosal thickening. Appendix: No evidence of appendicitis. Intraperitoneal space: Unremarkable. No free air. No significant fluid collection. Vasculature: Unremarkable. No abdominal aortic aneurysm. Lymph nodes: Unremarkable. No enlarged lymph nodes. Urinary bladder: Unremarkable as visualized. Reproductive: Unremarkable as visualized. Bones/joints: Unremarkable. No acute fracture. Soft tissues: Unremarkable. IMPRESSION: 1. Liver is diffusely hypoattenuating but without focal lesion. 2. Punctate nonobstructing calyceal calcifications within the kidneys.
--- NOTE | 2022-02-18 00:16 | HMH.EDABDPAI ---
Discharge Plan Disposition Patient Disposition: Home, Self-Care Prescriptions Prescriptions: No Action venlafaxine 75 MG capsule,extended release 24hr 75 mg PO DAILY bisoprolol-hydrochlorothiazide 1 EACH tablet 25 mg PO DAILY amitriptyline 10 MG tablet 10 mg PO DAILY cetirizine 10 MG capsule 10 mg PO DAILY potassium chloride 20 MEQ tablet extended release 20 meq PO DAILY Qty: 7 0RF Referrals Follow up/Referrals: Provider,Referral, MD [Primary Care Provider] - See instructions Clinical Impressions Clinical Impression: Pelvic pain Instructions Patient Instructions: DI for Pelvic Pain Discharge ED Provider: Jong Sotelo Abdominal Pain HPI General Chief Complaint: Abdominal Pain Stated Complaint: Nausea,pain all over Time Seen by Provider: 02/18/22 00:16 Mode of Arrival: Wheelchair Source of Information: Patient and Medical Record Limitations: No Limitations Description of Symptoms (Recalled from ER Triage Doc. by RN): pt c/o LLQ pain radiating to back with nauesa History of Present Illness HPI narrative: acute severe lt lower abd pain complaint: abdominal pain Onset (ago): hour(s) Consistency: constant Location: LLQ Severity: severe Quality: sharp Associated symptoms: denies other symptoms Treatments prior to arrival: NSAIDs Related Data Home Medications Medication Instructions Recorded Confirmed amitriptyline 10 mg tablet 10 mg PO DAILY Depression 01/16/19 01/16/19 bisoprolol 5 25 mg PO DAILY htn 01/16/19 01/16/19 mg-hydrochlorothiazide 6.25 mg tablet cetirizine 10 mg capsule 10 mg PO DAILY allergies 01/16/19 01/16/19 venlafaxine 75 mg capsule,extended 75 mg PO DAILY Depression 01/16/19 01/16/19 release 24 hr Previous Rx's Medication Instructions Recorded potassium chloride 20 mEq 20 meq PO DAILY #7 tabs 04/10/20 tablet,extended release Allergies Allergy/AdvReac Type Severity Reaction Status Date / Time No Known Allergies Allergy Verified 01/16/19 20:09 PFSH PFSH Social History Smoking Status: Never smoker second hand exposure: No alcohol intake: current current occupational status: employed Travel in the last 8 weeks: None household members: spouse housing: house ROS Obtained: Yes All systems reviewed & no additional complaints except as documented Physical Exam General General appearance: alert Head Head exam: normocephalic Eye Eye exam: Present PERRL and EOMI ENT ENT exam: Present mucous membranes moist Neck Neck exam: Present trachea midline Respiratory Respiratory exam: Absent respiratory distress Cardiovascular Cardiovascular exam: Present regular rate Abdominal Exam Abdominal exam: Present soft and tenderness Abdominal tenderness: Present LLQ and severe Back Exam Back exam: Absent CVA tenderness (L) Neurological Exam Neurological exam: Present alert, oriented X3 and CN II-XII intact; Absent motor sensory deficit Skin Skin exam: Present intact Medical Decision Making Medical Records Medical records reviewed: Yes I reviewed the patient's medical records. Jamie Inquiry Pt receiving controlled substance: No Vital Signs: 02/17/22 23:41 02/18/22 00:30 02/18/22 01:00 Temperature 98.0 F Temperature Source Oral Pulse Rate 87 98 H Pulse Rate [Right] 86 Respiratory Rate 18 Blood Pressure 112/71 113/78 Blood Pressure [Right Arm] 136/70 Blood Pressure Mean [Right Arm] 92 02 Sat by Pulse Oximetry 98 99 98 Oxygen Delivery Method Room Air Room Air 02/18/22 02:51 02/18/22 02:51 Temperature 98 F Temperature Source Pulse Rate 85 Pulse Rate [Right] Respiratory Rate 18 Blood Pressure 115/70 Blood Pressure [Right Arm] Blood Pressure Mean [Right Arm] 02 Sat by Pulse Oximetry Oxygen Delivery Method Room Air Room Air Lab Data Lab results reviewed: Yes I reviewed the patient's lab results. Lab Results 02/18/22 00:05: WBC 7.4, RBC 4.18 L, Hgb 13.0, H
[2022-02-18 00:28] LABS: Basophils # 0.1 K/mm3 (0-0.2); Basophils % 1.7 % (0.1-2.0); Chloride 106 mmol/L (98-107); Eosinophils # 0.3 K/mm3 (0.0-0.4); Eosinophils % 4.1 % (0.1-12.0); Hematocrit 39.6 % (37.0-47.0); Lymphocytes # 3.9 K/mm3 (0.7-4.5); Lymphocytes % 52.4 % (10-50); Mean Corpuscular HGB Conc 32.9 g/dL (31.8-35.4); Mean Corpuscular Hemoglobin 31.1 pg (27.0-31.2); Mean Corpuscular Volume 94.7 fl (81-99); Mean Platelet Volume 8.6 fl (7.4-10.4); Monocytes # 0.3 K/mm3 (0.1-1.0); Monocytes % 3.6 % (1.7-9.3); Neutrophils # 2.8 K/mm3 (1.8-7.8); Neutrophils % 38.2 % (37.0-80.0); Platelet Count 324 K/mm3 (142-424); Red Blood Count 4.18 M/mm3 (4.20-5.40); Red Cell Distribution Width 14.4 % (11.5-17.5); White Blood Count 7.4 K/mm3 (4.8-10.8)
[2022-02-18 00:29] LABS: MANUAL DIFFERENTIAL MANUAL DIFFERENTIAL (MANUAL DIFF); Sodium 139 mmol/L (136-145)
[2022-02-18 00:30] VITALS: BP 112/71; PULSE 87; O2SAT 99
[2022-02-18 00:31] LABS: Alanine Aminotransferase 29 U/L (12-78); Alkaline Phosphatase 80 U/L (38-126); Aspartate Amino Transferase 34 U/L (14-36); Bilirubin,Total 0.4 mg/dl (0.2-1.3); Blood Urea Nitrogen 9 mg/dl (7-17); Creatinine Clearance Estimated 99 mL/min (50-200); Estimated Glomerular Filt Rate 91 ml/min (>60); GFR (African American) 110 ML/MIN (>60)
[2022-02-18 00:32] LABS: Albumin Level 4.5 g/dl (3.5-5.0); Albumin/Globulin Ratio 1.9 (1.1-1.8); Calcium 9.4 mg/dl (8.4-10.2); Carbon Dioxide 21 mmol/L (22.0-30.0); Globulin 2.4 g/dL (1.3-3.2); Glucose 127 mg/dl (74-100); Total Protein,Serum 6.9 g/dl (6.3-8.2)
--- NOTE | 2022-02-18 00:36 | PC.NURSE ---
Tamiko from lab called with a critical potassium of 3.0. notified. No new orders.
[2022-02-18 01:00] VITALS: BP 113/78; PULSE 98; O2SAT 98
--- NOTE | 2022-02-18 01:06 | US_ITS ---
PROCEDURE INFORMATION: Exam: US Pelvis, Transvaginal Exam date and time: 02/18/2022 2:03 AM Age: 42 years old Clinical indication: Pelvic pain; Additional info: R/O torsion left pelvis pain TECHNIQUE: Imaging protocol: Real-time transvaginal pelvic ultrasound with image documentation. Transvaginal imaging was used for better evaluation of the endometrium, adnexa, and/or cervix. COMPARISON: CT ABDOMEN PELVIS W CON 02/18/2022 1:32 AM FINDINGS: Uterus: Uterus measures 6.5 x 4.0 x 4.2 cm. Normal and homogeneous in echogenicity. Endometrium is 4 mm in thickness. Right ovary/adnexa: Right ovary measures 2.0 x 1.2 x 1.7 cm. Appropriate Doppler flow. Normal and homogeneous in echogenicity. Left ovary/adnexa: Left ovary measures 1.8 x 0.9 x 1.2 cm. Normal and homogeneous in echogenicity. Appropriate Doppler flow. Intraperitoneal space: No evidence of free fluid in the cul-de-sac or pathologic adnexal mass. IMPRESSION: No abnormalities demonstrated on female pelvic ultrasound.
[2022-02-18 01:09] LABS: Amylase 183 U/L (30-110); Lipase 82 U/L (23-300)
--- NOTE | 2022-02-18 01:16 | PC.NURSE ---
radiology contacted to call in u/s tech
[2022-02-18 01:40] LABS: HCG Qualitative, Serum Negative (Negative)
[2022-02-18 01:41] LABS: Microscopic, Urine URINE MICROSCOPIC (MICROSCOPIC)
--- NOTE | 2022-02-18 01:55 | PC.NURSE ---
US Tech at bedside performing transvaginal US at this time
[2022-02-18 02:41] LABS: Appearance,Urine CLEAR (Clear); Bilirubin,Urine Negative (Negative); Blood, Urine Negative (Negative); Color,Urine YELLOW (Yellow); Glucose,Urine (UA) Negative (Negative); Ketones,Urine Negative (Negative); Leukocyte Esterase,Urine TRACE (Negative); Nitrate,Urine Negative (Negative); PH,Urine 6.5 (5.0-8.5); Protein,Urine Negative (Negative); Urobilinogen,Urine 0.2 EU/dl (0.2)
[2022-02-18 02:49] LABS: Eosinophils % 3 % (0-3); Lymphocytes % 50 % (10-50); Monocytes % 2 % (2-9); Neutrophils % 45 % (42-76); Platelet Estimate Normal; RBC Morphology Normal; Total Cells Counted 100
[2022-02-18 02:51] VITALS: BP 115/70; PULSE 85; RESP 18; TEMP 36.6; O2SAT 98
[2022-02-18 02:52] LABS: Bacteria,Urine 1+ /lpf
== END 2022-02-18 03:00 | disposition home or self-care (01) ==
PROVIDERS: Emergency Provider Emergency Medicine
DX: R10.2 Pelvic and perineal pain (principal); Z79.899 Other long term (current) drug therapy; I10 Essential (primary) hypertension; F32.A Depression, unspecified
CPT/HCPCS: 74177; 76830; 80053; 81001; 82150; 83690; 84703; 85007; 85025; 96365; 96375; 99284; J2405; Q9967

== ENCOUNTER → 2022-10-22 08:53 | Outpatient (CLI) | payer BC, SELFPAY ==
[2022-10-22 10:49] LABS: Vitamin B12 292 pg/mL (239-931)
[2022-10-22 10:50] LABS: Folate 8.61 ng/mL
[2022-10-25 16:17] LABS: Antiscleroderma-70 Antibodies <0.2 AI (0.0-0.9); RNP Antibodies 0.3 AI (0.0-0.9); Sjogren's Anti-SS-A <0.2 AI (0.0-0.9); Sjogren's Anti-SS-B <0.2 AI (0.0-0.9)
[2022-10-26 11:19] LABS: dsDNA AB Crithidia Negative (Negative)
[2022-11-13 17:27] LABS: Antinuclear Antibodies (ANA) Positive
== END ==
PROVIDERS: PCP Nurse Practitioner Family; Visit Provider Physician Assistant Medical
DX: M06.09 Rheumatoid arthritis without rheumatoid factor, multiple sites (principal); R22.0 Localized swelling, mass and lump, head
CPT/HCPCS: 36415; 82607; 82746; 86038; 86225; 86235

== ENCOUNTER 2023-07-13 12:36 | Outpatient (CLI) | payer BC, SELFPAY ==
--- NOTE | 2023-07-13 12:42 | XR_ITS ---
FINAL REPORT CLINICAL HISTORY: CONSTIPATION FINDINGS: ABDOMEN SINGLE VIEW There is a nonspecific, nonobstructive bowel gas pattern. No bowel dilation is identified. There is a small to moderate amount of retained stool throughout the colon. Questionable small left renal stone is identified. IMPRESSION: Stool burden as above. Questionable left renal stone. If indicated, CT may be helpful. Reviewed, Interpreted and Dictated by Mervin Valentine III, MD Transcribed by Yarelis Lopez Authenticated and [facility]
== END 2023-07-13 23:59 | disposition home or self-care (01) ==
LOC: RAD 12:37
PROVIDERS: PCP Nurse Practitioner Family; Visit Provider Internal Medicine Gastroenterology
DX: K59.09 Other constipation (principal); R10.84 Generalized abdominal pain
CPT/HCPCS: 74018

== ENCOUNTER 2023-10-11 13:37 | Outpatient (CLI) | payer BC, SELFPAY ==
--- NOTE | 2023-10-11 13:44 | XR_ITS ---
FINAL REPORT CLINICAL HISTORY: LOW BACK PAIN COMPARISON: None FINDINGS: SACROILIAC JOINTS Three views demonstrate no acute fracture or dislocation. The sacral arches are intact. There is mild degenerative change of the sacroiliac joints. No soft tissue abnormality is seen. IMPRESSION: No acute bony abnormality. Mild SI joint degenerative change. Reviewed, Interpreted and Dictated by Mervin Valentine III, MD Transcribed by Tosha Morelos Authenticated and [facility]
== END 2023-10-11 23:59 | disposition home or self-care (01) ==
LOC: RAD 13:38
PROVIDERS: PCP Nurse Practitioner Family; Visit Provider Internal Medicine Rheumatology
DX: M54.50 Low back pain, unspecified (principal)
CPT/HCPCS: 72202

== ENCOUNTER 2024-08-24 15:23 | Outpatient (CLI) | payer BC, SELFPAY ==
[2024-08-24 15:40] LABS: Basophils % 0.6 % (0.1-2.0); Eosinophils # 0.2 Kmm3 (0.0-0.4); Eosinophils % 2.8 % (0.1-12.0); Hematocrit 34.4 % (37.0-47.0); Immature Granulocytes # 0.01 10^3uL; Immature Granulocytes % 0.2 %; Lymphocytes # 1.6 K/mm3 (0.7-4.5); Mean Corpuscular Hemoglobin 30.6 pg (27.0-31.2); Mean Corpuscular Volume 95.6 fl (81-99); Mean Platelet Volume 10.7 fl (7.4-10.4); Monocytes # 0.4 K/mm3 (0.1-1.0); Monocytes % 7.1 % (1.7-9.3); Neutrophils # 3.2 K/mm3 (1.8-7.8); Neutrophils % 59.3 % (37.0-80.0); Nucleated Red Blood Cells # 0 10^3/uL; Nucleated Red Blood Cells % 0 %; Platelet Count 231 K/mm3 (142-424); Red Cell Distribution Width 13.9 % (11.5-17.5); Red Cell Distribution Width-SD 49.1 fL; White Blood Count 5.4 K/mm3 (4.8-10.8)
[2024-08-24 16:12] LABS: Alanine Aminotransferase 17 U/L (12-78); Albumin Level 4.1 g/dl (3.5-5.0); Albumin/Globulin Ratio 2.2 (1.1-1.8); Alkaline Phosphatase 54 U/L (38-126); Anion Gap 8.4 mEq/L (5-15); Aspartate Amino Transferase 27 U/L (14-36); Bilirubin,Total 0.7 mg/dl (0.2-1.3); Blood Urea Nitrogen 11 mg/dl (7-17); Calcium 8.7 mg/dl (8.4-10.2); Carbon Dioxide 25 mmol/L (22.0-30.0); Chloride 110 mmol/L (98-107); Creatine Kinase 113 U/L (30-135); Estimated Glomerular Filt Rate 90 ml/min (>60); GFR (African American) 109 ML/MIN (>60); Globulin 1.9 g/dL (1.3-3.2); Glucose 93 mg/dl (74-100); Potassium 4.4 mmoL/L (3.5-5.1); Sodium 139 mmol/L (136-145)
[2024-08-24 16:17] LABS: C-Reactive Protein 3.1 mg/L (0-4)
[2024-08-24 16:23] LABS: Erythrocyte Sedimentation Rate 7 mm/hr (0-20)
== END 2024-08-24 23:59 | disposition home or self-care (01) ==
LOC: LAB 15:24
PROVIDERS: PCP Nurse Practitioner Family; Visit Provider Internal Medicine Rheumatology
DX: Z51.81 Encounter for therapeutic drug level monitoring (principal); L40.59 Other psoriatic arthropathy; M06.4 Inflammatory polyarthropathy; M54.50 Low back pain, unspecified
CPT/HCPCS: 36415; 80053; 82550; 85025; 85651; 86140

== ENCOUNTER 2024-12-26 07:06 | Outpatient (CLI) | payer BC, SELFPAY ==
--- OUTSIDE RECORDS SUMMARY | 2024-07-07 17:30 | XMS_ITS ---
Author Organization [facility] Address [address] [place] [address] Care Team Providers Care Steel Pan Form Placing Supervisor Name Role Phone César Fowler Primary Care Provider Jillian Sands Unavailable [phone] César Fowler Unavailable Unavailable Migration, Provider Unavailable Unavailable [facility] Conversion Encounter Medications Medication SIG (Take, Route, Frequency, Duration) Notes Start Date End Date Status amLODIPine Besylate 10 MG 1/2 tab orally once a day; Duration: 30 days Active Methotrexate 2.5 MG 8 TABLETS ORALLY ONCE A WEEK *Please review and pick correct strength-formulat ion from [facility] options. If intended option is not shown, discontinue and re-order from Quick Search* Active Folic Acid 1 MG 1 tab(s) orally once a day Active Escitalopram Oxalate 20 MG 1 tab(s) orally once a day; Duration: 30 days Active Linzess 290 MCG 1 cap(s) orally once a day Active LORazepam 0.5 MG 1 tab(s) orally twice a day PRN panic symptoms; Duration: 10 days 05/09/2024 Active Gabapentin 400 MG 1 cap(s) orally at bedtime; Duration: 30 days 05/24/2024 Active Gabapentin 100 MG 1 cap(s) orally once a day as needed 05/09/2024 Active Omeprazole 40 MG 1 cap(s) orally once a day; Duration: 90 days Active Cyclobenzaprine HCl 10 MG 1 tab orally at bedtime for muscle spasm; Duration: 90 days Active Lysine 500 MG 1 tab orally once a day Active NuvaRing 0.12-0.015 MG/24HR 1 ea intravaginally every 4 weeks; Duration: 1 dose(s) Active Claritin 10 MG 1 TAB ORAL QD; Duration: 30 DAYS prn *Please review and pick correct strength-formulat ion from [employer] options. If intended option is not shown, discontinue and re-order from Quick Search* Active Ondansetron 4 MG 1 tab(s) orally 3 times a day as needed; Duration: 5 days 07/01/2020 Active Plaquenil 200 MG 1 tab(s) orally 2 times a day; Duration: 90 days Active Encounters Encounter Location Date Provider Diagnosis [facility] [address] [place] [address] 07/07/2024 Provider Migration Fibromyalgia M79.7 Assessments Encounter Date Diagnosis (ICD Code) Assessment Notes Treatment Notes Treatment Clinical Notes Section Notes 07/07/2024 Fibromyalgia (ICD-10 - M79.7) Plan Of Treatment Medication Medication Name Sig Start Date Stop Date Notes Gabapentin 400 MG 1 cap(s) orally at b edtime; Duration: 30 days 05/24/2024 Gabapentin 100 MG 1 cap(s) orally once a day as needed 08/2024 Omeprazole 40 MG 1 cap(s) orally once a day; Duration: 90 days Progress Notes * Jane ALEJODOB:1980 ([age] yo F)Acc No.[id number]:07/07/2024 Patient: Jane MURPHY Provider: Aric posada Migration :1980 A ge:44 Y S ex:Female Date:07/07/2024 Address:[place] [id number] Pcp:César Fowler Subjective: * Chief Complaints: * 1 . Multum To [facility] Conversion Encounter. * Medical History: * Medications: T aking Folic Acid 1 MG Tablet 1 tab(s) orally once a day , Taking Methotrexate 2.5 MG TABLET 8 TABLETS ORALLY ONCE A WEEK , Notes to Pharmacist: *Please review and pick correct strength-formulation from [employer] options. If intended option is not shown, discontinue and re-order from Quick Search*, Taking Linzess 290 MCG Capsule 1 cap(s) orally once a day , Taking Lysine 500 MG Tablet 1 tab orally once a day , Taking Claritin 10 MG 1 TAB ORAL QD , Notes to Pharmacist: prn *Please review and pick correct strength-formulation from [employer] options. If intended option is not shown, discontinue and re-order from Quick Search*, Taking NuvaRing 0.12-0.015 MG/24HR Ring 1 ea intravaginally every 4 weeks , Taking Ondansetron 4 MG Tablet Disintegrating 1 tab(s) orally 3 times a day as needed , Taking Plaquenil 200 MG Tablet 1 tab(s) orally 2 times a day , Taking Cyclobenzaprine HCl 10 MG Tablet 1 tab orally at bedtime for muscle spasm , Taking LORazepam 0.5 MG Tablet 1 tab(s) orally twice a day PRN panic symptoms , Taking amLODIPine Besylate 10 MG Tablet 1/2 tab orally once a day , Taking Escitalopram Oxalate 20 MG Tablet 1 tab(s) orally once a day Objective: * Vitals: Assessment: * Assessment: 1. F ibromyalgia - M79.7 Plan: * Treatment: 2. O thers Start Omeprazole Capsule Delayed Release, 40 MG, 1 cap(s), orally, once a day, 90 days, 90 Capsule, Refills 1. * * Electronic signature of Prov ider Migration on 12/26/2024 at 07:09 AM EDT Sign off status: Pending * Provider: Aric posada Migration Date: 0 07/07/2024 Generated for Truman rivera/Tremaine/Regina on: 0 12/26/2024 07:09 AM EDT
--- NOTE | 2024-12-26 07:00 | CT_ITS ---
FINAL REPORT TECHNIQUE: Thin section axial images were obtained through the paranasal sinuses without contrast. Reconstruction images were obtained from the axial data. Exam was performed using dose reduction techniques such as automated exposure control, adjustment of the mA and kV according to patient size, and use of iterative reconstruction technique. CLINICAL HISTORY: chronic sinusitis FINDINGS: There is very mild mucoperiosteal thickening in the floor of the bilateral maxillary sinuses. Remaining paranasal sinuses are clear. There is no air-fluid level or significant mucosal thickening. The maxillary infundibulum are patent bilaterally. There is right nasal septal deviation. The mastoids are clear. There is no acute osseous abnormality. Remaining soft tissues are unremarkable. IMPRESSION: Very mild mucoperiosteal thickening of the bilateral maxillary sinuses. Right nasal septal deviation. Reviewed, Interpreted and Dictated by Sherry Marquez MD Transcribed by Yarelis Lopez Authenticated and [facility]
--- OUTSIDE RECORDS SUMMARY | 2024-12-26 07:09 | XMS_ITS | Patient Health Record ---
Author Organization [facility] Address [address] [place] [address] Care Team Providers Care Getter Operator Name Role Phone César Fowler Primary Care Provider Jillian Sands Unavailable [phone] César Fowler Unavailable Unavailable Jillian Yip Unavailable [phone] Migration, Provider Unavailable Unavailable Allergies No Known Allergies Results Component Value Reference Range Notes Urinalysis Reviewed date:08/06/2024 05:27:33 PM Interpretation: Performing Lab: Notes/Report: Color/Clarity yellow Leuk trace Nitrite neg Urobili 2.0 Protein 30 pH 7.0 Blood neg Sp. Gr. 1.030 Ketone neg Bili neg Glucose neg CULTURE, URINE, ROUTINE (395 ) Reviewed date:08/11/2024 08:44:47 AM Interpretation: Performing Lab:[facility], [facility], [id number] Werner Lynch Notes/Report: NON-FASTING CULTURE, URINE, ROUTINE SEE NOTE CULTURE, URINE, ROUTINE Micro Number: [id number] Test Status: Final Specimen Source: Urine Specimen Quality: Adequate Result: 1,000-9,000 CFU/ML of Group B Streptococcus isolated Beta-hemolytic streptococci are predictably susceptible to Penicillin and other beta-lactams. Susceptibility testing not routinely performed. Please contact the laboratory within 3 days if susceptibility testing is desired. Comment: Erythromycin and clindamycin are not recommended for treatment of urinary tract infections, but clindamycin may be useful for treatment of rectovaginal colonization or infection. Any amount of group B Streptococcus in urine specimens obtained from females is a marker of genital tract colonization. If this patient is , please refer to ACOG guidelines for appropriate screening and management of women. COMMENT: Additional non-predominating organism(s) isolated. These organisms, commonly found on external and internal genitalia, are considered colonizers. No further testing performed. Rapid Covid/Flu A-B Combo Reviewed date:03/29/2024 03:40:14 PM Interpretation: Performing Lab: Notes/Report: Rapid Covid Neg Flu A Pos Flu B Neg Reason For Referral Reason Home sleep study Diagnosis 1 Snoring (R06.83) Referral Organization [facility] Referring Provider First Name Jillian Referring Provider Last Name Shavon Referring Provider Speciality [facility] Referred Organization [facility] Referred Address [address],[address], Referred Provider Specialty Sleep Study General Notes Maddy Ramos 2024 12:38:14 PM >sent to [facility] Referral Priority Routine Medications Medication SIG (Take, Route, Frequency, Duration) Notes Start Date End Date Status Probiotic 1-250 BILLION-MG as directed Orally Active Methotrexate 2.5 MG 8 TABLETS ORALLY ONCE A WEEK *Please review and pick correct strength-formulat ion from InStaff options. If intended option is not shown, discontinue and re-order from Quick Search* Active Omeprazole 40 MG TAKE 1 CAPSULE BY MOUTH ONCE DAILY; Duration: 90 Active Folic Acid 1 MG 1 tab(s) orally once a day Active LORazepam 0.5 MG 1 tab(s) orally twice a day PRN panic symptoms; Duration: 10 days 05/09/2024 Active Plaquenil 200 MG 1 tab(s) orally 2 times a day; Duration: 90 days Active Cyclobenzaprine HCl 10 MG TAKE 1 TABLET BY MOUTH AT BEDTIME FOR MUSCLE SPASM; Duration: 90 Active NuvaRing 0.12-0.015 MG/24HR 1 ea intravaginally every 4 weeks; Duration: 1 dose(s) Active Linzess 290 MCG 1 cap(s) orally once a day Active Escitalopram Oxalate 20 MG TAKE 1 TABLET BY MOUTH ONCE DAILY; Duration: 30 Active amLODIPine Besylate 10 MG TAKE 1/2 TABLET BY MOUTH ONCE A DAY; Duration: 30 Active Gabapentin 100 MG 1 cap(s) orally once a day as needed; Duration: 30 days 12/17/2024 Active Ondansetron 4 MG 1 tab(s) orally 3 times a day as needed; Duration: 5 days 07/01/2020 Active Amoxicillin 875 MG 1 tablet Orally Twice a day; Duration: 5 days 08/10/2024 Active Gabapentin 400 MG 1 cap(s) orally at bedtime; Duration: 30 days 12/17/2024 Active Immunizations Vaccine Route Administration Date Status Comme nts FLUZONE 6MO - OLDER IM Intramuscular 01/26/2019 Administer ed FLUZONE 6MO - OLDER IM Intramuscular 02/22/2022 Administer ed Flublok IM Intramuscular 01/29/2020 Administered Flublok IM Intramuscular 05/24/2024 Administered Covid Ana Unknown 06/11/2020 Administered Boostrix IM Intramuscular 05/24/2024 Administered Social History Tobacco Use: Social History Observation Description Date Details (start date - stop date) Never Smoker NA - NA Smoking: Question Answer Notes Are you a: nonsmoker Problems Problem Type SNOMED Code ICD Code Onset Dates Problem Status W/U Status Risk Notes Problem Fibromyalgia (483252462) Fibromyalgia (M79.7) Active confirmed Problem C-reactive protein abnormal (751318364) Elevated C-reactive protein (CRP) (R79.82) Active confirmed Problem Paresthesia (11630383) Paresthesia (R20.2) Active confirmed Problem Polyarthralgia (09829668) Polyarthralgia (M25.50) Active confirmed Problem Chronic fatigue syndrome (69379784) Chronic fatigue (R53.82) Active confirmed Problem Peripheral edema (73994662) Peripheral edema (R60.9) Active confirmed Problem Psoriatic arthritis (929368078) Psoriatic arthritis (L40.50) Active confirmed Problem Raised antinuclear antibody (909352282) Positive SANDI (antinuclear antibody) (R76.8) Active confirmed Problem Panic disorder (968499232) Panic disorder (F41.0) Active confirmed Problem Chronic constipation (397093982) Chronic constipation (K59.09) Active confirmed Problem Constipation (64752493) Unspecified constipation (K59.00) Active confirmed Problem Essential hypertension (35936457) HTN, goal below 130/80 (I10) Active confirmed Problem Chest pain (43661041) Costochondral chest pain (R07.89) Active confirmed Problem Microscopic colitis (337215437) Microscopic colitis, unspecified microscopic colitis type (K52.839) Active confirmed Vital Signs Heart Rate 84 /min 08/06/2024 Temperature 97.9 degrees Fahrenheit 08/06/2024 Blood pressure diastolic 80 mm Hg 08/06/2024 Height 5 ft 4 in in 08/06/2024 Blood pressure systolic 108 mm Hg 08/06/2024 Weight 144.2 lbs 08/06/2024 BMI 24.75 kg/m2 08/06/2024 Encounters Encounter Location Date Provider Diagnosis [facility] [address] [place] [address] 07/07/2024 Provider Migration Fibromyalgia M79.7 [facility] [address] [place] [address] 03/29/2024 Jillian Yip Acute cough R05.1 ; Influenza A J10.1 and Acute maxillary sinusitis, recurrence not specified J01.00 [facility] [address] [place] [address] 05/24/2024 [facility] HTN, goal below 130/80 I10 ; Routine medical exam Z00.00 ; Fibromyalgia M79.7 ; Panic disorder F41.0 ; Psoriatic arthritis L40.50 ; Chronic constipation K59.09 ; BMI 24.0-24.9, adult Z68.24 ; Hot flashes R23.2 and Immunization(s) administered Z23 [facility] [address] [place] [address] 08/06/2024 [facility] Dysuria R30.0 ; Snoring R06.83 ; Chronic fatigue R53.82 ; Vaginal yeast infection B37.31 and 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7 [facility] [address] [place] [address] 12/17/2024 Jillian Sands Fibromyalgia M79.7 Assessments Encounter Date Diagnosis (ICD Code) Assessment Notes Treatment Notes Treatment Clinical Notes Section Notes 03/29/2024 Influenza A (ICD-10 - J10.1) Influenza positive. Discussed the etiology & expected course of the flu. Discussed risk and benefit of Tamiflu and patient agrees to proceed with prescription. Discussed the rationale for not prescribing antibiotics. Continue supportive care with PRN antipyretics, OTC cough/cold meds, Mucinex, nasal saline rinses/Neti pot with distilled water, salt water gargles, cough drops, and humidifier. Encourage PO hydration. Patient must be fever and vomit free x 24 hours without fever reducing medications before going back to work/school. Discussed the signs and symptoms of worsening condition and need for reassessment in clinic or ED. Keep previously scheduled physical exam or f/u sooner PRN. Patient voices understanding and is agreeable to this plan. 03/29/2024 Acute cough (ICD-10 - R05.1) 05/08/2024 Panic disorder (ICD-10 - F41.0) 05/24/2024 Routine medical exam (ICD-10 - Z00.00) routine screening/yaron nce for age reviewed, vaccinations updated as noted 08/06/2024 Snoring (ICD-10 - R06.83) 08/06/2024 Dysuria (ICD-10 - R30.0) mild proteinuria and pyruria today as noted...will send for culture and treat only if positive agree that additional treatment of ureaplasma really isn't warranted. this and her difficulty with yeast may be complicated by nuvaring as well as use of MTX and steroids...rec holding MTX for 2 weeks while initiating weekly diflucan 09/11/2024 Fibromyalgia (ICD-10 - M79.7) 09/12/2024 Fibromyalgia (ICD-10 - M79.7) 12/17/2024 Fibromyalgia (ICD-10 - M79.7) 12/17/2024 Fibromyalgia (ICD-10 - M79.7) 05/24/2024 HTN, goal below 130/80 (ICD-10 - I10) BP stable on current regimen 07/07/2024 Fibromyalgia (ICD-10 - M79.7) 08/06/2024 Chronic fatigue (ICD-10 - R53.82) 05/24/2024 Fibromyalgia (ICD-10 - M79.7) continue gabapentin, low-dose. SANTIAGO on file, CSA on file, will increase to 400mg at HS and can use 100mg during the day as needed to see if this improves to hot flashes as suggested by AIRCRAFT INSTRUMENT MECHANIC 03/29/2024 Acute maxillary sinusitis, recurrence not specified (ICD-10 - J01.00) Start antibiotic for acute sinusitis as stated above. Discussed she likely caught back to back viral uris, but with significant ttp of left maxillary sinus, will proceed with treatment. Discussed the etiology & expected course of a URI. Continue supportive care with PRN antipyretics, nasal saline rinses, and humidifier. Encourage PO hydration. Discussed the signs and symptoms of worsening condition and need for reassessment in clinic or ED. Patient voices understanding. 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) 05/24/2024 Psoriatic arthritis (ICD-10 - L40.50) Rheumatology following 05/24/2024 Chronic constipation (ICD-10 - K59.09) rec add miralax daily 05/24/2024 BMI 24.0-24.9, adult (ICD-10 - Z68.24) 05/24/2024 Hot flashes (ICD-10 - R23.2) 05/24/2024 Immunization(s) administered (ICD-10 - Z23) Plan Of Treatment Pending Test Test Name Order Date CT Scan : Chest, Without Contrast 2021 Physical Therapy 02/06/2021 H-STREP SCREEN (RAPID) 06/30/2017 H-TSH 05/16/2017 H-FREE T4 05/16/2017 C-PROTEIN, URINE RANDOM 04/01/2018 C-CBC 04/01/2018 C-CBC 01/26/2019 C-Sed Rate (ESR) 01/26/2019 C-Sed Rate (ESR) 04/01/2018 C-CMP 04/01/2018 C-CMP 01/26/2019 C-TSH 04/01/2018 C-SANDI 01/26/2019 C-RA FACTOR 04/01/2018 [id number] CITRULLINATED PEPTIDE 03/05 C-CRP 04/01/2018 C-CRP 01/26/2019 M-Complete Blood Count Auto Diff 021 M-Comprehensive Metabolic Panel 04/10/19 21 M-Lipase 04/10/2020 M-Ova + Parasite Exam 04/10/2020 M-COVID PCR SINGLE RAPID 06/02/2020 Rapid Covid Antigen 08/19/2020 Insurance Providers Payer Name Payer Address Payer Phone Subscriber Number Group Number Insured Name Patient Relationship to Insured Coverage Start Date Coverage End Date [facility] [address] [place] [address] [phone] [id number] Jane Alejo Self - patient is the insured Medical (General) History Medical History History ICD Code Chronic lyme disease, Dx by Dr. 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
--- OUTSIDE RECORDS SUMMARY | 2024-12-26 07:10 | XMS_ITS | Clinical Summary ---
Author Organization [facility] Address [address] [place] [address] Care Team Providers Care Brass Pourer Name Role Phone Jillian Sands RN, [facility] Primary Care Provider Source Comments [facility] fully rolled [facility] with thefollowing exceptions:[facility]ergies No known active allergies Medications amLODIPine (NORVASC) 10 MG tablet Take 0.5 tablets (5 mg total) by mouth 1 time a day. 05/03/2022 Active cetirizine (ZyrTEC) 10 MG tablet Take 1 tablet (10 mg total) by mouth 1 time a day. Active cyclobenzaprine (FLEXERIL) 10 MG tablet Take 1 tablet (10 mg total) by mouth at bedtime. 01/24/2023 Active Cyclobenzaprine -Gabapentin (CYCLO/BETH 10/300) 10 & 300 MG therapy pack 04/27/2019 Active escitalopram (LEXAPRO) 20 MG tablet Take 1 tablet every day by oral route. 04/27/2012 Active NUVARING 0.12-0.015 MG/24HR ring Insert 1 vaginal ring every month by vaginal route. 04/13/2022 Active hydroxychloroqu ine sulfate (PLAQUENIL) 200 MG tablet Take 1 tablet every day by oral route. 04/27/2018 Active LORazepam (ATIVAN) 0.5 MG tablet Take 1 tablet (0.5 mg total) by mouth 2 times a day as needed. 04/27/2014 Active lysine 1000 MG tablet 11/25/2022 Active omeprazole (PriLOSEC) 40 MG delayed release capsule Take 1 capsule (40 mg total) by mouth 1 time a day. 04/27/2019 Active ondansetron (ZOFRAN) 4 MG tablet Take 1 tablet twice a day by oral route. 04/27/2021 Active TRULANCE 3 MG tablet Take 1 tablet every day by oral route. 03/21/2022 Active predniSONE 10 MG (48) tablet therapy pack 04/27/2021 Active triamcinolone acetonide (KENALOG) 0.1 % ointment Apply to the skin 2 times a day. 04/20/2022 Active Social History Tobacco Use Types Packs/Day Years Used Date Smoking Tobacco: Never Assessed Comments Unknown Sex and Gender Information Value Date Recorded Sex Assigned at Not on file Legal Sex Female 11:09 AM EST Gender Identity Not on file Sexual Orientation Not on file Last Filed Vital Signs Vital Sign Reading Time Taken Comments Blood Pressure 120/74 04/28/2023 10:46 AM EST Pulse 83 04/28/2023 10:46 AM EST Temperature 36.7 C (98.1 F) 04/28/2023 10:46 AM EST Respiratory Rate 18 04/28/2023 10:46 AM EST Oxygen Saturation - - Inhaled Oxygen Concentration - - Weight 60.6 kg (133 lb 9.6 oz) 04/28/2023 10:46 AM EST Height 162.4 cm (5' 3.94 ) 04/28/2023 10:[address] Body Mass Index 22.98 04/28/2023 10:46 AM EST Plan of Treatment Health Maintenance Due Date Last Done Comments MMR IMMUNIZATION (1 of 1 - Standard series) 1979 DTAP/Tdap/Td IMMUNIZATION (1 - Tdap) 1985 VARICELLA IMMUNIZATION (1 of 2 - 13+ 2-dose series) 1991 HEPATITIS B IMMUNIZATION (1 of 3 - 19+ 3-dose series) 1997 COVID-19 Vaccine (2 - Ana risk series) 07/09/2020 06/11/2020 AMB SEASONAL FLU VACCINE (#1) 12/03/2024 02/22/2022, 01/29/2020, 01/03/2020, Additional history exists HIB IMMUNIZATION Aged Out No longer e ligible based on patient's age to complete this topic HPV IMMUNIZATION Aged Out No longer e ligible based on patient's age to complete this topic IPV IMMUNIZATION Aged Out No longer e ligible based on patient's age to complete this topic MCV4 IMMUNIZATION Aged Out No longer eligible based on patient's age to complete this topic MENINGOCOCCAL B VACCINE Aged Out No l onger eligible based on patient's age to complete this topic PNEUMOCOCCAL IMMUNIZATION Aged Out No longer eligible based on patient's age to complete this topic Respiratory Syncytial Virus (RSV) <20mo Aged Out No longer eligible based on patient's age to complete this topic Insurance [employer] NON-TRADITIONAL Member Subscriber Plan / Payer (Ef fective 2022-Present) Name:Jane Alejo Relation to Subscriber:Spouse Name:Madhu Alejo Date of :1979 (Home) Address: [address] [place] [address] Payer ID:[id number] (NAIC) Type:HMO Address: [address] [place] [id number] Care Teams Brass Pourer Relationship Specialty Start Date End Date Jillian Sands RN, MOTOR INSTALLER [facility] [place] [address] [address] [place] [address] PCP - General 04/28/23
--- OUTSIDE RECORDS SUMMARY | 2024-12-26 07:10 | XMS_ITS | Patient Health Record ---
[facility] Address [address] [facility] [address] [place] [id number] Care Team Providers Care Cloth Presser Name Role Phone Victorino Urbano Primary Care Provider MorrowConrado colby Unavailable [phone] Medications Medication SIG (Take, Route, Frequency, Duration) Notes Start Date End Date Status Lexapro 10 MG 1 tab(s) orally once a day Active Doxycycline 100 MG 2 TAB BID *Please revie w and pick correct strength-formulati on from AlchemyAPI options. If intended option is not shown, discontinue and re-order from Quick Search* Active valACYclovir HCl 500 MG 1 tab(s) orally twice a day Active Metaxalone 800 MG 1 tab(s) orally 3 times a day 04/29/2017 Active NuvaRing 0.12-0.015 MG/24HR 1 ea intravaginally every 4 weeks Active Medrol 4 MG as directed orally daily; Duration: 6 days 04/29/2017 Active Immunizations Vaccine Route Administration Date Status Comme nts tuberculin (ppd) ID Intradermal 07/28/2005 Administered Tetanus Tdap-Adacel (over 7yrs) IM Intramuscular 02/03/2012 Administered Problems Problem Type SNOMED Code ICD Code Onset Dates Problem Status W/U Status Risk Notes Problem Anxiety disorder (974909089) Anxiety disorder (300.00) Active confirmed Plan Of Treatment No Information Insurance Providers Payer Name Payer Address Payer Phone Subscriber Number Group Number Insured Name Patient Relationship to Insured Coverage Start Date Coverage End Date [employer] [address] [place] [address] [id number] AlejoThoria Self - patient is the insured Medical (General) History Medical History History ICD Code kidney stones Chronic Lyme Disease- 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
== END 2024-12-26 23:59 | disposition home or self-care (01) ==
LOC: RAD 07:07
PROVIDERS: PCP Nurse Practitioner Family; Visit Provider Nurse Practitioner
DX: J34.2 Deviated nasal septum (principal); J34.89 Other specified disorders of nose and nasal sinuses; R51.9 Headache, unspecified; R09.82 Postnasal drip
CPT/HCPCS: 70486